=== PATIENT | female | born 1955 | race Caucasian/White ===

== ENCOUNTER 2016-12-08 17:55 | Emergency (ER) | payer OTHER, SELFPAY ==
--- NOTE | ~2016-12-08 | CT16 ---
[facility] A Service of [facility] RADIOLOGY TEXT RESULTS PATIENT: ASHWIN MARTIN LOCATION: [facility] : 57 UNIT #: [id number] AGE: [address]: Veronica Koehler MD SEX: F ORDER DR: [id number] [facility] [address] [place], [place] [address] [id number] E MR#: [id number] Acc #: [id number] NAME: ASHWIN MARTIN. : 1955 SEX: F STUDY DATE/TIME: 12/08/2016 19:02 UNIT: [facility] ROOM: STUDY DESCRIPTION: CT Angio Chest for PE Attending Physician: Veronica Koehler M.D. Ordering Physician: Veronica Koehler M.D. Primary Care Physician: Avtar Truong M.D. MEDICAL IMAGING REPORT This report is preliminary unless electronic signature is present EXAM CT of the chest IV contrast, CT angiography of the pulmonary arteries and aorta, 12/08/2016 HISTORY SUPPLIED Shortness of breath and chest pain beginning last evening. COMPARISON 07/17/2012 TECHNIQUE Helical imaging of the chest was performed with IV contrast. 3-D MIP multiplanar reconstructions were obtained in multiple planes through the pulmonary arteries and aorta. This CT exam was performed with one or more of the following radiation dose reduction techniques: automatic exposure control, adjustment of mA and/or kV according to patient size, and iterative reconstruction. FINDINGS Scans through the lung bases show some linear scarring or atelectasis. This is present on the old studies of 2011. No acute infiltrates are suspected. Scans through the mediastinum show no masses or lymphadenopathy. There is no evidence of pleural or pericardial fluid. Scans through the upper abdomen show postop changes of prior cholecystectomy and are otherwise unremarkable. CT angiography was performed of the pulmonary arteries. There are no pulmonary artery filling defects identified. Aorta is of normal course and caliber throughout. Right hemidiaphragm appears lobulated there is some motion artifact in the bases. [facility] A Service of [facility] RADIOLOGY TEXT RESULTS PATIENT: ASHWIN MARTIN LOCATION: [facility] : 57 UNIT #: [id number] AGE: [address]: Veronica Koehler MD SEX: F ORDER DR: CONCLUSION Basilar fibrotic changes, unchanged from previous study. No acute findings in the chest or upper abdomen. Postop changes of prior cholecystectomy. No evidence of pulmonary embolism, aortic aneurysm or dissection, pleural or pericardial fluid. Dictated by... Bakari Madera M.D. THIS IS AN ELECTRONICALLY VERIFIED REPORT Bakari Madera M.D. at 12/09/2016 10:35 AM Kwan TD: 12/09/2016 04:17 JOB #: [id number] MEDICAL IMAGING REPORT Page 1 of 1 COPY
--- NOTE | ~2016-12-08 | EKG ---
PATIENT: ASHWIN MARTIN UNIT #: [id number] Ventricular Rate: 79 BPM Atrial Rate: 79 BPM P-R Interval: 172 ms QRS Duration: 82 ms Q-T Interval: 396 ms QTC Calculation(Bezet): 454 ms P [place]: 63 degrees Calculated R [place]: -24 degrees Calculated T [place]: 92 degrees Diagnosis Line: Normal sinus rhythm Diagnosis Line: ST and T wave abnormality, consider lateral ischemia Diagnosis Line: Abnormal ECG Diagnosis Line: No previous ECGs available Diagnosis Line: Confirmed by KASEY APONTE MD ([id number]) on 12/10/2016 Diagnosis Line: 9:30:17 AM INTERPRETING MD: FAY ABEL
--- NOTE | ~2016-12-08 | CR72 ---
[facility] A Service of [facility] & [facility] / [facility] RADIOLOGY TEXT RESULTS PATIENT: ASHWIN MARTIN LOCATION: [facility] : 57 UNIT #: [id number] AGE: [address]: Veronica Koehler MD SEX: F ORDER DR: [id number] [facility] [address] [place], [place] [address] [id number] E MR#: [id number] Acc #: [id number] NAME: ASHWIN MARTIN. : 1955 SEX: F STUDY DATE/TIME: 12/08/2016 15:15 UNIT: [facility] ROOM: STUDY DESCRIPTION: CR Chest Single View Portable Attending Physician: Veronica Koehler M.D. Ordering Physician: Veronica Koehler M.D. Primary Care Physician: Avtar Truong M.D. MEDICAL IMAGING REPORT This report is preliminary unless electronic signature is present EXAM Portable chest 12/08/2016 INDICATION Chest pain, shortness of air for 2-3 days. History of COPD and hypertension. FINDINGS AP portable chest is compared with 10/17/2016. Heart size is normal. The exam is degraded by artifact and motion, particularly at the left lung base. There is some blunting of the left costophrenic angle which could reflect pleural fluid. The lungs are clear and there is no pneumothorax. IMPRESSION The exam is degraded by motion as well as overlying artifact. There may be a small left pleural effusion. Dictated by... Avtar Liang Jr., M.D. THIS IS AN ELECTRONICALLY VERIFIED REPORT Avtar Liang Jr., M.D. at 12/09/2016 8:10 AM EM/asa TD: 12/08/2016 19:51 JOB #: [id number] MEDICAL IMAGING REPORT Page 1 of 1 COPY
[2016-12-08 15:05] LABS: BASOPHIL# 0.1 X10e3 (0-0.3); BASOPHIL% 1.4 % (0-2.5); EOSINOPHIL# 0.1 X10e3 (0-0.7); HEMATOCRIT 48.2 % (35.0-45.0); HEMOGLOBIN 15.9 gm/dL (12.0-16.0); LYMPHOCYTE# 1.6 X10e3 (1.0-3.5); LYMPHOCYTE% 19.8 % (17.0-45.0); MEAN CORPUSCULAR HEMOGLOBIN 28.3 PG (28-34); MEAN PLATELET VOLUME 8.7 FL (6.5-11.5); MONOCYTE# 0.6 X10e3 (0-1.0); MONOCYTE% 7.8 % (3.0-12.0); NEUTROPHIL# 5.7 X10e3 (1.5-7.1); PLATELET COUNT 200 X10e3 (140-420); RED BLOOD COUNT 5.61 X10e (3.90-5.30); RED CELL DISTRIBUTION WIDTH 14.7 % (11.0-15.5); WHITE BLOOD COUNT 8.2 X10e3 (4.0-10.5)
[2016-12-08 15:06] LABS: DIFF IND NO
[2016-12-08 15:10] LABS: POC - CKMB <1.0 ng/mL (0.0-7.9); POC - TROPONIN <0.05 ng/mL (<=0.05)
[2016-12-08 15:42] LABS: ALBUMIN SERUM 4.1 g/dL (3.5-5.0); ALKALINE PHOSPHATASE 77 U/L (32-92); ALT (SGPT) 22 U/L (10-40); AST (SGOT) 26 U/L (10-42); BILIRUBIN, DIRECT 0.1 mg/dL (0.0-0.2); BILIRUBIN,INDIRECT 0.8 mg/dL (0.0-0.9); BILIRUBIN,TOTAL 0.9 mg/dL (0.2-2.0); BLOOD UREA NITROGEN 12 mg/dL (9-23); CALCIUM SERUM 9.3 mg/dL (8.4-10.2); CARBON DIOXIDE 25 mmol/L (22-31); CHLORIDE 101 mmol/L (100-111); CREATININE SERUM 0.6 mg/dL (0.6-1.4); GLOM FILT RATE Estimated ABOVE60 mL/min (>60); GLUCOSE FASTING 84 mg/dL (70-110); POTASSIUM 3.6 mmol/L (3.5-5.1); PROTEIN TOTAL SERUM 7.4 g/dL (6.0-8.3); SODIUM 138 mmol/L (135-145)
[2016-12-08 15:48] LABS: INFLUENZA A NEG (NEG); INFLUENZA B NEG (NEG)
[~2016-12-08 17:55] MED LIST: ADVAIR 500-501 EACH IH; ALBUTEROL; ALBUTEROL0.83 MG/ML IH; ALBUTEROL17 G1 IH; ALBUTEROL17 GM INH; AMOXICILLIN500 M1 PO; ATENOLOL50 MG PO; ATIVAN PO; BACLOFEN10 MG PO; BACTRIM DS TABL1 TA1 PO; BENADRYL25 M1 PO; BENTYL20 MG PO; BENZONATATE PO; BENZONATATE200 MG PO; CALTRATE 600+D PO; CIPRO PO; CLONAZEPAM2 MG PO; CLONIDINE PO; COUMADIN7.5 MG PO; DAZIDOX10 MG PO; DICLOFENAC PO; DILAUDID2 MG PO; FUROSEMIDE40 MG PO; GABAPENTIN800 MG PO; GUAIFENESIN600 MG PO; HYDROCODON-ACE1 EAC4 PO; HYDROCODON-ACE1 EAC5 PO; HYDROCODONE-APA1 T51 PO; HYDROCODONE-APA1 T54 PO; HYDROGESIC 5/501 CAP PO; K-DUR20 ME1 PO; K-DUR20 ME2 PO; KLONOPIN PO; KLONOPIN2 MG PO; LASIX PO; LASIX20 MG PO; LASIX80 MG PO; LEVAQUIN PO; LEVAQUIN750 MG PO; LEVOTHROID25 MCG PO; LEVOTHYROXINE25 MCG PO; MEDROL PO; MEDROL4 MG/DOSE- PO; MILK OF MAGNESIA PO; MORPHINE SULFAT20 MG PO; NAPROSYN500 MG PO; NEURONTIN PO; NEURONTIN800 MG PO; OMEPRAZOLE20 M2 PO; OPANA ER10 M1 PO; OPANA10 MG PO; OXYCODONE HCL10 M1 PO; PAXIL PO; PAXIL40 MG PO; PERCOCET 10/3251 TAB PO; PERCOCET PO; PHENERGAN DM1 ML PO; PHENERGAN PO; PHENERGAN25 M1 PO; PHENERGAN25 MG PO; PREDNISONE PO; PREDNISONE10 MG PO; PREDNISONE10 MG/DOSE PO; PREMARIN PO; PRILOSEC PO; PRILOSEC20 M1 PO; PRILOSEC20 MG PO; PRILOSEC40 MG PO; PYRIDIUM100 MG PO; REMERON PO; REQUIP0.5 MG PO; SENNA S TABLET1 TAB PO; SYNTHROID25 MCG PO; TESSALON200 MG PO; THORAZINE10 MG PO; TOPAMAX PO; ULTRAM PO; VIBRAMYCIN100 M1 PO; VICODIN 5/500 T1 TAB PO; VOLTAREN75 MG PO; ZESTRIL10 MG PO; ZITHROMAX PO; ZITHROMAX1 G/PKT PO; ZOFRAN; ZOFRAN ODT4 MG PO; ZOFRANODT PO; ZYRTEC PO
== END 2016-12-08 20:42 | disposition home or self-care (01) ==
LOC: CED 17:55
PROVIDERS: Emergency Medicine
DX: R07.89 Other chest pain (principal); R06.2 Wheezing; I10 Essential (primary) hypertension; J44.9 Chronic obstructive pulmonary disease, unspecified; F41.8 Other specified anxiety disorders; F17.210 Nicotine dependence, cigarettes, uncomplicated; Z90.89 Acquired absence of other organs; Z88.5 Allergy status to narcotic agent; Z88.8 Allergy status to other drugs, medicaments and biological substances
CPT/HCPCS: 36415; 71010; 71275; 80048; 80076; 82553; 84484; 85025; 87804; 93005; 94640; 96365; 96375; 99284; J1100; J1200; J1885; J2765; J3475; Q9967

== ENCOUNTER 2017-01-17 06:19 | Emergency (ER) | payer OTHER ==
--- NOTE | ~2017-01-17 | EKG ---
PATIENT: ASHWIN MARTIN UNIT #: [id number] Ventricular Rate: 64 BPM Atrial Rate: 64 BPM P-R Interval: 188 ms QRS Duration: 88 ms Q-T Interval: 444 ms QTC Calculation(Bezet): 458 ms P [place]: 35 degrees Calculated R [place]: -18 degrees Calculated T [place]: 2 degrees Diagnosis Line: Normal sinus rhythm Diagnosis Line: Low voltage QRS Diagnosis Line: Nonspecific T wave abnormality Diagnosis Line: Abnormal ECG Diagnosis Line: When compared with ECG of 08-DEC-2016 12:39, Diagnosis Line: Nonspecific T wave abnormality has replaced Diagnosis Line: inverted T waves in Lateral leads Diagnosis Line: Confirmed by JOSE DIXON MD ([id number]) on Diagnosis Line: 01/18/2017 4:33:07 PM INTERPRETING MD: ZACK ABEL
--- NOTE | ~2017-01-17 | CR72 ---
[facility] A Service of [facility] RADIOLOGY TEXT RESULTS PATIENT: ASHWIN MARTIN LOCATION: [facility] : 57 UNIT #: [id number] AGE: [address]: Mario Walker MD SEX: F ORDER DR: [id number] [facility] [address] [place], [place] [address] [id number] E MR#: [id number] Acc #: [id number] NAME: ASHWIN MARTIN. : 1955 SEX: F STUDY DATE/TIME: 01/17/2017 6:44 UNIT: [facility] ROOM: STUDY DESCRIPTION: CR Chest Single View Portable Attending Physician: Mario Walker M.D. Ordering Physician: Mario Walker M.D. Primary Care Physician: Avtar Truong M.D. MEDICAL IMAGING REPORT This report is preliminary unless electronic signature is present EXAM Portable chest 01/17/2017 HISTORY 61-year-old female with shortness of air for 2 days. COMPARISON: Chest 12/08/2016 FINDINGS Frontal chest demonstrates some questionable minimally increased opacities in the upper lung christopher bilaterally. This may be projectional, but early infiltrates are not excluded in the appropriate clinical setting. Minimal left basilar atelectasis. No large pleural effusions. No pneumothorax. Heart size and mediastinum are stable. Pulmonary vasculature unremarkable. IMPRESSION Questionable minimally increased opacities in the upper lung christopher bilaterally. This may be projectional, but early infiltrates are not excluded in the appropriate clinical setting. Minimal left basilar atelectasis. Dictated by... Janes Malik M.D. THIS IS AN ELECTRONICALLY VERIFIED REPORT Janes Malik M.D. at 01/18/2017 6:38 PM SMITA/jose TD: 01/17/2017 08:59 JOB #: [id number] [facility] A Service of [facility] RADIOLOGY TEXT RESULTS PATIENT: ASHWIN MARTIN LOCATION: [facility] : 57 UNIT #: [id number] AGE: [address]: Mario Walker MD SEX: F ORDER DR: MEDICAL IMAGING REPORT Page 1 of 1 COPY
== END 2017-01-17 08:39 | disposition home or self-care (01) ==
LOC: CED 06:19
DX: J18.9 Pneumonia, unspecified organism (principal); J44.1 Chronic obstructive pulmonary disease with (acute) exacerbation; I10 Essential (primary) hypertension; Z88.5 Allergy status to narcotic agent; Z88.6 Allergy status to analgesic agent; Z88.1 Allergy status to other antibiotic agents; Z88.8 Allergy status to other drugs, medicaments and biological substances
CPT/HCPCS: 71010; 93005; 94640; 99284

== ENCOUNTER 2017-04-04 21:05 | Emergency (ER) | payer OTHER ==
[~2017-04-04] VITALS: Ht 165.1 cm; Wt 76.7 kg
--- NOTE | ~2017-04-04 | EKG ---
PATIENT: ASHWIN MARTIN UNIT #: [id number] Ventricular Rate: 81 BPM Atrial Rate: 81 BPM P-R Interval: 184 ms QRS Duration: 90 ms Q-T Interval: 398 ms QTC Calculation(Bezet): 462 ms P [place]: 64 degrees Calculated R [place]: -23 degrees Calculated T [place]: 75 degrees Diagnosis Line: Normal sinus rhythm Diagnosis Line: Low voltage QRS Diagnosis Line: Septal infarct , age undetermined Diagnosis Line: Abnormal ECG Diagnosis Line: No previous ECGs available Diagnosis Line: Confirmed by PRINCE MCKEON MD ([id number]) on Diagnosis Line: 04/05/2017 3:52:50 PM INTERPRETING MD: LINDA ABEL
--- NOTE | ~2017-04-04 | CR127 ---
[facility] A Service of [facility] & [facility] RADIOLOGY TEXT RESULTS PATIENT: ASHWIN MARTIN LOCATION: [facility] : 57 UNIT #: [id number] AGE: [address]: Avtar Gómez MD SEX: F ORDER DR: [id number] [facility] [address] [place], [place] [address] [id number] E MR#: [id number] Acc #: [id number] NAME: ASHWIN MARTIN. : 1955 SEX: F STUDY DATE/TIME: 04/04/2017 21:33 UNIT: [facility] ROOM: STUDY DESCRIPTION: CR Foot Complete Min 3 View Rt Attending Physician: Avtar Gómez M.D. Ordering Physician: Jose Sheridan M.D. Primary Care Physician: Avtar Truong M.D. MEDICAL IMAGING REPORT This report is preliminary unless electronic signature is present EXAM Right foot 3 views. HISTORY Foot pain after twisting injury and fall today. FINDINGS Three views of the right foot demonstrate satisfactory bone alignment. Mild degenerative changes at the first MTP joint. Small posterior and plantar calcaneal spurs. No fracture or dislocation. Dictated by... Salty Saleh M.D. THIS IS AN ELECTRONICALLY VERIFIED REPORT Salty Saleh M.D. at 04/05/2017 2:23 PM DFL/bd TD: 04/05/2017 13:10 JOB #: [id number] MEDICAL IMAGING REPORT Page 1 of 1 COPY
--- NOTE | ~2017-04-04 | CR21 ---
[facility] A Service of [facility] & [facility] RADIOLOGY TEXT RESULTS PATIENT: ASHWIN MARTIN LOCATION: [facility] : 57 UNIT #: [id number] AGE: [address]: Avtar Gómez MD SEX: F ORDER DR: [id number] [facility] [address] [place], [place] [address] [id number] E MR#: [id number] Acc #: [id number] NAME: ASHWIN MARTIN. : 1955 SEX: F STUDY DATE/TIME: 04/04/2017 21:31 UNIT: [facility] ROOM: STUDY DESCRIPTION: CR Ankle Min 3 Views Rt Attending Physician: Avtar Gómez M.D. Ordering Physician: Ed Doctor [id number] [facility] Primary Care Physician: Avtar Truong M.D. MEDICAL IMAGING REPORT This report is preliminary unless electronic signature is present EXAM Right ankle 3 views HISTORY Right ankle pain after fall today. Twisting injury. FINDINGS 3 views of the right ankle demonstrate soft tissue swelling about the ankle greater over the lateral malleolus. A 3 mm well-circumscribed calcification at the tip of the medial malleolus is likely either an accessory ossicle or old ununited avulsion fracture. No acute fractures identified. Bone alignment is normal. Dictated by... Salty Saleh M.D. THIS IS AN ELECTRONICALLY VERIFIED REPORT Salty Saleh M.D. at 04/05/2017 2:23 PM DFL/nancy TD: 04/05/2017 13:08 JOB #: [id number] MEDICAL IMAGING REPORT Page 1 of 1 COPY
[2017-04-04 23:11] LABS: BASOPHIL# 0.1 X10e3 (0-0.3); BASOPHIL% 0.6 % (0-2.5); EOSINOPHIL# 0.1 X10e3 (0-0.7); EOSINOPHIL% 0.7 % (0.0-7.0); HEMATOCRIT 39.5 % (35.0-45.0); LYMPHOCYTE# 1.3 X10e3 (1.0-3.5); LYMPHOCYTE% 12.4 % (17.0-45.0); MEAN CORPUSCULAR HEMOGLOBIN 29.1 PG (28-34); MEAN PLATELET VOLUME 8.2 FL (6.5-11.5); MONOCYTE# 0.9 X10e3 (0-1.0); MONOCYTE% 8.9 % (3.0-12.0); NEUTROPHIL# 7.8 X10e3 (1.5-7.1); NEUTROPHIL% 77.4 % (40-75); PLATELET COUNT 192 X10e3 (140-420); RED BLOOD COUNT 4.49 X10e (3.90-5.30); RED CELL DISTRIBUTION WIDTH 15.5 % (11.0-15.5); WHITE BLOOD COUNT 10.1 X10e3 (4.0-10.5)
[2017-04-04 23:13] LABS: DIFF IND NO
[2017-04-04 23:22] LABS: URINE SOURCE CLEAN CATCH
[2017-04-04 23:32] LABS: URINE APPEARANCE CLEAR; URINE BILIRUBIN NEG (NEG); URINE BLOOD NEG (NEG); URINE COLOR YELLOW; URINE GLUCOSE NEG (NEG); URINE KETONE NEG (NEG); URINE LEUKOCYTE ESTERASE NEG (NEG); URINE NITRATE NEG (NEG); URINE PH 5.5 (5-8); URINE PROTEIN NEG (NEG); URINE SPECIFIC GRAVITY 1.011 (1.003-1.035); URINE UROBILINOGEN 0.2 MG/DL (NEG)
[2017-04-04 23:36] LABS: CULTURE INDICATED? NO
[2017-04-04 23:38] LABS: ALBUMIN SERUM 3.7 g/dL (3.5-5.0); BILIRUBIN, DIRECT 0.1 mg/dL (0.0-0.2); BILIRUBIN,INDIRECT 0.4 mg/dL (0.0-0.9); BILIRUBIN,TOTAL 0.5 mg/dL (0.2-2.0); BUN/CREATININE RATIO 12.3; CALCIUM SERUM 8.7 mg/dL (8.4-10.2); CREATININE SERUM 1.3 mg/dL (0.6-1.4); GLOM FILT RATE Estimated 44.6 mL/min (>60); POTASSIUM 3.7 mmol/L (3.5-5.1); PROTEIN TOTAL SERUM 6.6 g/dL (6.0-8.3)
[2017-04-05 00:04] LABS: POC - CKMB <1.0 ng/mL (0.0-7.9); POC - TROPONIN <0.05 ng/mL (<=0.05)
[2017-04-05 01:30] LABS: POC - CKMB <1.0 ng/mL (0.0-7.9); POC - TROPONIN <0.05 ng/mL (<=0.05)
== END 2017-04-05 01:36 | disposition home or self-care (01) ==
LOC: CED 21:05
PROVIDERS: Emergency Medicine
DX: R55 Syncope and collapse (principal); S93.491A Sprain of other ligament of right ankle, initial encounter; N17.9 Acute kidney failure, unspecified; E86.0 Dehydration; J44.9 Chronic obstructive pulmonary disease, unspecified; F17.200 Nicotine dependence, unspecified, uncomplicated; Z88.6 Allergy status to analgesic agent; Z88.5 Allergy status to narcotic agent; Z88.8 Allergy status to other drugs, medicaments and biological substances
CPT/HCPCS: 36415; 73610; 73630; 80048; 80076; 81003; 82553; 84484; 85025; 93005; 96360; 99284